=== PATIENT | female | born 1980 | race Caucasian/White ===

== ENCOUNTER 2019-09-21 16:24 | Emergency (ER) | payer MEDICAID, SELFPAY ==
[2019-09-21 17:18] VITALS: BP 135/92; PULSE 113; RESP 16; TEMP 36.6; O2SAT 100; BMI 29.7
--- NOTE | 2019-09-21 17:40 | W.ED.SKABFB ---
HPI - Skin/Abscess/Foreign Bdy General: Chief complaint: Skin/Abscess/Foreign Body Stated complaint: SPIDER BITE RIGHT CALF Time Seen by Provider: 09/21/19 17:34 History of Present Illness: HPI narrative: Patient is a 39-year-old female comes to the ED with an abscess on her right leg. She states she noticed it 5 days ago. She did feel a bite or sting all the small ulcer had formed. She did not see any bug or spider that caused it. She states that the swelling and pain has continued to get worse. She now says that hard for a walker move around on right leg. Denies any fever, chills, Shortness of breath, chest pain, vomiting, abdominal pain, hematuria, dysuria, bowel symptoms. Review of Systems General: Reports: 10 or more systems reviewed and unremarkable except in HPI and below PFSH ED PFSH: Statuses (acute, chronic, etc) shown below reflect problem list status as previously entered and may not be historically accurate Social History Smoking and tobacco status: current some day smoker Alcohol intake: never Female Reproductive History: Date of last menstrual period: 09/07/19 Physical Exam Narrative: EXAM NARRATIVE: Patient is a 39-year-old female that appears in pain as I entered the room. Const: COMMON NORMALS: oriented x3 HENMT: COMMON NORMALS: normocephalic HEAD & SCALP: normocephalic MOUTH: oral and palatal mucosa normal THROAT: posterior oropharynx normal and uvula midline Neck/C-Spine: COMMON NORMALS: supple GENERAL: Yes normal visual inspection Resp: COMMON NORMALS: normal respiratory effort, no retractions, no use of accessory muscles and clear to auscultation bilaterally AUSCULTATION: clear to auscultation bilaterally Cardio: COMMON NORMALS: regular rate, regular rhythm, S1 normal heart sound, S2 normal heart sound, no gallops, no clicks, no murmurs and peripheral pulses 2+ throughout RATE: regular rate RHYTHM: regular rhythm HEART SOUNDS: S1 normal and S2 normal PERIPHERAL PULSES: pulses 2+ throughout GI: COMMON NORMALS: normal to inspection, nondistended, normoactive bowel sounds, soft to palpation, non-tender and no masses PALPATION: Yes soft : COMMON NORMALS: Yes no CVA tenderness BLADDER/KIDNEY EXAM: Yes no CVA tenderness Back/Pelvis: COMMON NORMALS: no CVA tenderness Extremity: RIGHT LOWER EXTREMITY: Yes lower leg Right lower leg: Yes inspection (erythema, warmth and swelling with ulcer in center-yellow drainage), Yes palpation (very tender, non flunctuant, and indurated) and Yes neurovascular exam (intact) Neuro: COMMON NORMALS: oriented x3 and moves all extremities Course ED course: Patient's pain did improve with hydrocodone and she was able to walk without as much discomfort or pain while here in the ED after hydrocodone dose. Vital Signs: Vital signs: Vital Signs Temperature 98.8 F 09/21/19 20:40 Pulse Rate 101 H 09/21/19 20:40 Respiratory Rate 17 09/21/19 20:40 Blood Pressure 114/76 09/21/19 20:40 Pulse Oximetry 98 09/21/19 20:40 MDM - Skin/Abscess/Foreign Bdy MDM Narrative: Medical decision making narrative: Patient is a 39-year-old female comes to the ED with right lower extremity cellulitis. Ultrasound showed no abscess or fluid pocket to drain. Patient was then given a dose of Rocephin and also hydrocodone for pain while here in the ED. Patient was then discharged and told to follow with primary care doctor in 7 days for reevaluation. She was given a prescription for Bactrim and also a written prescription for hydrocodone 5/325 mg 10 tablets. Patient understood and agreed with plan. Lab Data: Attestation: I reviewed the patient's lab results. Labs: Lab Results 09/21/19 09/21/19 Range/Units 17:50 17:50 WBC 8.9 (4.0-10.0) 10^3/ uL RBC 4.56 (4.1-5.3) 10^6/u L Hgb 13.1 (11.5-15.3) g/dL Hct 38.9 (37.0-47.0) % MCV 85.3 (81-99) fL MCH 28.7 (28.0-34.0) pg MCHC 33.7 (30.0-36.0) g/dL RDW 11.5 L (12.1-15.1) % Plt Count 272 (130-400) 10^3/c mm MPV 10.1 (7.4-10.4) fL Neut % (Auto) 75.1 % Lymph % (Auto) 15.9 % [place] % (Auto) 8.3 % Eos % (Auto) 0.3 % Baso % (Auto) 0.2 % Neut # (Auto) 6.7 (1.8-7.7) 10^3/u L Lymph # (Auto) 1.4 (0.8-4.8) 10^3/u L [place] # (Auto) 0.7 (0.2-0.9) 10^3/u L Eos # (Auto) 0.0 (0.0-0.8) 10^3/u L Baso # (Auto) 0.0 (0.0-0.1) 10^3/u L Nucleated RBC % (a uto) 0 % Nucleated RBCs # 0.0 /100WBC Sodium 141 (136-145) mmol/L Potassium 3.8 (3.5-5.1) mmol/L Chloride 104 (98-107) mmol/L Carbon Dioxide 22 (22-29) mmol/L Anion Gap 18.8 (5-19) BUN 10 (6-20) mg/dL Creatinine 0.6 (0.5-0.9) mg/dL GFR Calculation 110.7 (90-130) mL/min Glucose 104 (65-115) mg/dL Calcium 9.8 (8.5-10.5) mg/dL Total Bilirubin 0.6 (0.15-1.2) mg/dL AST 13 (0-32) U/L ALT 13 (0-33) U/L Alkaline Phosphata se 67 (35-105) IU/L Total Protein 7.6 (6.6-8.7) g/dL Albumin 4.5 (3.5-5.2) g/dL Globulin 3.1 (1.3-4.6) g/dL Imaging Data^: US: Attestation: I personally reviewed and interpreted this imaging study as follows: Radiologist's impression: Prelim report-no abscess seen. Xray Ortho: Attestation: I personally reviewed and interpreted this imaging study as follows: My impression: Right Tib/fib-No acute fractures. pending final radiologist report Discharge Plan Discharge Patient Disposition: Home, Self-Care Clinical Impression: Cellulitis Qualifiers: Site of cellulitis: extremity Site of cellulitis of extremity: lower extremity Laterality: right Qualified Code(s): L03.115 - Cellulitis of right lower limb Condition: Stable Prescriptions: New Bactrim DS 800-160 mg tablet 1 tab PO DAILY 10 Days Qty: 10 RF: 0 No Action naproxen 500 mg tablet,delayed release (DR/EC) 500 mg PO BID RF: 0 Discharge Orders: Discharge Order (Routine); Ordered 09/21/19 Ordered By: Isaiah Mitchell Referrals: Christina Alonso FNP [Primary Care Provider] - Discharge Diet: Regular Discharge Activity: Resume usual activity Patient Instructions: Cellulitis (ED) Activity Restrictions/Additional Instructions: Called to set up an appointment with your PCP in the next 7 days for reevaluation. Take full course of antibiotics as prescribed. He used to prescribed hydrocodone as needed for breakout pain. You can also take naproxen or ibuprofen to help with pain as well. Drink plenty of fluids and stay hydrated. Return to ED for reevaluation if he started developing a fever or cellulitis worsens after 3-4 days of treatment on an antibiotic. Discharge Date/Time: 09/21/19 20:30 Coding Level of Care Code ED [employer] Hazmat Driver for Mary Ceron Exam Problem Focused
--- NOTE | 2019-09-21 18:11 | US_ITS ---
WS: [id number] ULTRASOUND SOFT TISSUES lateral lower extremity HISTORY: Swelling and pain in right leg COMPARISON: None available. TECHNIQUE: 2-D and color Doppler imaging is submitted. Ultrasound is directed over the lateral LEFT lower extremity in the area of the soft tissue ulceratio n. There is a large amount of edema. No focal collection or enhancement. US/US soft tissue/extremity [id number] IMPRESSION: Subcutaneous edema at the site of the ulceration in the RIGHT lower extremity. No abscess.
--- NOTE | 2019-09-21 18:11 | XRR_ITS ---
PROCEDURE INFORMATION: Exam: XR Right Tibia and Fibula Exam date and time: 09/21/2019 7:37 PM Age: 39 years old Clinical indication: Pain; Lower leg; Right; Additional info: Pain and swelling TECHNIQUE: Imaging protocol: XR Right tibia and fibula. Views: 2 views. COMPARISON: US soft tissue/extremity [id number] 09/21/2019 6:51 PM FINDINGS: Bones/joints: Osseous structures normal. No erosive changes. No periosteal response. No fracture. No soft tissue calcifications. Osseous structures about the knee normal. No joint effusion. Soft tissues unremarkable. Medial and lateral malleoli normal. ankle mortise is symmetrical. Hindfoot foot unremarkable. Tibiotalar joint and the subtalar joint normal. Soft tissues: See Bones/joints Finding. XR/XR tibia fibula RT 2V [id number] IMPRESSION: Normal leg.
[2019-09-21 18:17] LABS: Basophils % 0.2 %; Eosinophils % 0.3 %; Hematocrit 38.9 % (37.0-47.0); Hemoglobin 13.1 g/dL (11.5-15.3); Lymphocytes # 1.4 10^3/uL (0.8-4.8); Lymphocytes % 15.9 %; Mean Corpuscular HGB Conc 33.7 g/dL (30.0-36.0); Mean Corpuscular Hemoglobin 28.7 pg (28.0-34.0); Mean Corpuscular Volume 85.3 fL (81-99); Mean Platelet Volume 10.1 fL (7.4-10.4); Monocytes # 0.7 10^3/uL (0.2-0.9); Monocytes % 8.3 %; Neutrophils # 6.7 10^3/uL (1.8-7.7); Neutrophils % 75.1 %; Nucleated Red Blood Cells % 0 %; Platelet Count 272 10^3/cmm (130-400); Red Blood Count 4.56 10^6/uL (4.1-5.3); Red Cell Distribution Width 11.5 % (12.1-15.1); White Blood Count 8.9 10^3/uL (4.0-10.0)
[2019-09-21 18:21] VITALS: BP 92/78; PULSE 122; O2SAT 100
[2019-09-21] MEDS: HYDROcodone-acetaminophen 7.5-325 mg Tablet 1 TAB PO (18:21)
[2019-09-21 18:29] LABS: Alanine Aminotransferase 13 U/L (0-33); Albumin Level 4.5 g/dL (3.5-5.2); Alkaline Phosphatase 67 IU/L (35-105); Anion Gap 18.8 (5-19); Aspartate Amino Transferase 13 U/L (0-32); Blood Urea Nitrogen 10 mg/dL (6-20); Calcium 9.8 mg/dL (8.5-10.5); Carbon Dioxide 22 mmol/L (22-29); Chloride 104 mmol/L (98-107); Globulin 3.1 g/dL (1.3-4.6); Glomerular Filtration Rate 110.7 mL/min (90-130); Glucose 104 mg/dL (65-115); Potassium 3.8 mmol/L (3.5-5.1); Sodium 141 mmol/L (136-145); Total Bilirubin 0.6 mg/dL (0.15-1.2); Total Protein 7.6 g/dL (6.6-8.7)
[2019-09-21] MEDS: cefTRIAXone 1,000 mg SDV 1000 MG IM (19:47)
[2019-09-21] MEDS: lidocaine 1% INJ 20 mL 3.6 ML INJECTION (19:50)
[2019-09-21 20:40] VITALS: BP 114/76; PULSE 101; RESP 17; TEMP 37.1; O2SAT 98
== END 2019-09-21 20:30 | disposition home or self-care (01) ==
PROVIDERS: Emergency Provider Physician Assistant; Family Provider Nurse Practitioner; PCP Nurse Practitioner
DX: L03.115 Cellulitis of right lower limb (principal); F17.210 Nicotine dependence, cigarettes, uncomplicated
CPT/HCPCS: 36415; 73590; 76882; 80053; 85025; 87040; 96372; 99281; 99283; J0696; J2001

== ENCOUNTER 2019-10-04 13:29 | Outpatient (RCR) | payer MEDICAID, SELFPAY | END 2019-10-09 23:59 | disposition home or self-care (01) | LOC: WOUND 13:29 | PROVIDERS: Family Provider Nurse Practitioner; PCP Nurse Practitioner; Visit Provider Nurse Practitioner Family | DX: I96 Gangrene, not elsewhere classified (principal); L97.812 Non-pressure chronic ulcer of other part of right lower leg with fat layer exposed | CPT/HCPCS: G0463 ==

== ENCOUNTER 2019-10-25 13:20 | Outpatient (RCR) | payer MEDICAID, SELFPAY | END 2019-11-09 23:59 | disposition home or self-care (01) | LOC: WOUND 13:20 | PROVIDERS: Family Provider Nurse Practitioner; PCP Nurse Practitioner; Visit Provider Nurse Practitioner Family | DX: T63.331D Toxic effect of venom of brown recluse spider, accidental (unintentional), subsequent encounter (principal) | CPT/HCPCS: 11042; 99212; 99214 ==

== ENCOUNTER → 2019-11-01 10:25 | Outpatient (BNVA) | payer MEDICAID, SELFPAY | PROVIDERS: Family Provider Nurse Practitioner; PCP Nurse Practitioner; Visit Provider Counselor Professional | DX: F43.12 Post-traumatic stress disorder, chronic (principal) | CPT/HCPCS: 90834 ==

== ENCOUNTER → 2019-11-15 11:04 | Outpatient (BNVA) | payer MEDICAID, SELFPAY | PROVIDERS: Family Provider Nurse Practitioner; PCP Nurse Practitioner; Visit Provider Counselor Professional | DX: F43.12 Post-traumatic stress disorder, chronic (principal) | CPT/HCPCS: 90834 ==

== ENCOUNTER 2019-11-16 13:36 | Emergency (ER) | payer MEDICAID, SELFPAY ==
[2019-11-16 13:40] VITALS: BMI 31.4
[2019-11-16 13:47] VITALS: BP 116/74; PULSE 72; RESP 16; TEMP 37.1; O2SAT 98
--- NOTE | 2019-11-16 14:06 | W.ED.SKABFB ---
HPI - Skin/Abscess/Foreign Bdy General: Chief complaint: Skin/Abscess/Foreign Body Stated complaint: spider bite Time Seen by Provider: 11/16/19 13:43 Source: patient Mode of arrival: ambulatory Limitations: no limitations History of Present Illness: HPI narrative: Patient is a 39-year-old female who presents to ED today with complaints of a possible spider bite to her left lateral thigh that she noticed yesterday. Patient states she was bit by a brown recluse several months ago to her right lateral lower leg that required several wound care appointments to heal. Patient states she has seen several brown recluse spiders in her home. She states the area on her thigh currently is erythematous and burning in nature. She states she has noticed a small amount of clear drainage from the area. She has not been running fevers. She does not complain of nausea or vomiting. She has no other complaints at this time. MD complaint: insect bite/sting Tetanus up to date: yes Location: LLE Quality: burning Pain Consistency: constant Relieving factors: none Exacerbating factors: none Associated symptoms: Deny chills, fever(s), nausea or vomiting Treatments prior to arrival: none Review of Systems Const: Denies: fever, chills, body aches, change in appetite, change in weight, fatigue or malaise Eyes: Denies: change in vision, blurry vision or photophobia Card: Denies: chest pain, palpitations or lightheadedness Resp: Denies: shortness of breath GI: Denies: abdominal pain, nausea or vomiting Musc: Denies: neck pain or back pain Skin/Breast: Reports: new lesion Neuro: Denies: headache, numbness in extremities, weakness in extremities or changes in sensation [facility] ED PFSH: Medical History (Updated 11/16/19 @ 14:07 by JOY Stevens) Brown recluse spider bite Surgical History (Updated 09/28/19 @ 13:33 by MAGEN Schmidt) History of delivery (~2000) History of tubal ligation (~2009) Social History Smoking and tobacco status: current some day smoker cigarettes Alcohol intake: never History of recent travel: No Female Reproductive History: Date of last menstrual period: 11/03/19 Physical Exam Const: COMMON NORMALS: no apparent distress, average body habitus, oriented x3, no limitations, healthy appearing, alert and well nourished Extremity: COMMON NORMALS: full ROM, normal capillary refill, no joint enlargement, no clubbing, cyanosis or edema, no calf tenderness and no pedal edema GENERAL: Yes normal exam except as noted (see skin) OTHER: see skin assessment Neuro: COMMON NORMALS: oriented x3 SENSORIUM/ORIENTATION: Yes alert Skin: OTHER: Patient has a 2.5 inch area of annular erythema to her left upper lateral thigh with a central 1 cm area of developing probable necrosis although there are no hemorrhagic changes at this time. There is a scant amount of clear drainage from the center. Area overall is mildly indurated. There is no fluctuance or indication for I&D at this time. Course Vital Signs: Vital signs: Vital Signs Temperature 98.7 F 11/16/19 14:13 Pulse Rate 72 11/16/19 14:13 Respiratory Rate 16 11/16/19 14:13 Blood Pressure 116/74 11/16/19 14:13 Pulse Oximetry 98 11/16/19 13:47 MDM - Skin/Abscess/Foreign Bdy MDM Narrative: Medical decision making narrative: Will start pt on Bactrim and recommend follow up with PCP. She may require wound care yet again if area becomes necrotic. Return to ED precautions given. Discharge Plan Discharge Patient Disposition: Home, Self-Care Clinical Impression: Brown recluse spider bite Qualifiers: Encounter type: initial encounter Condition: Stable Prescriptions: New Bactrim DS 800-160 mg tablet 1 tab PO BID 7 Days Qty: 14 RF: 0 No Action ibuprofen 800 mg tablet 800 mg PO Q8H PRN (Reason: pain) Qty: 90 RF: 0 ondansetron HCl 4 mg tablet 4 mg PO DAILY RF: 0 montelukast 10 mg tablet 10 mg PO DAILY RF: 0 L-Lysine 500 mg Tablet 500 mg PO DAILY RF: 0 Chantix Continuing Month Box 1 mg tablet RF: 0 Discharge Orders: Discharge Order (Routine); Ordered 11/16/19 Ordered By: Key Cantu Referrals: Christina Alonso FNP [Primary Care Provider] - Discharge Diet: Usual diet Discharge Activity: Increase activity as tolerated Patient Instructions: Brown Recluse Spider Bite, Insect Bite or Sting (ED), Brown Recluse Spider Bite (ED) Discharge Date/Time: 11/16/19 14:14 Coding Level of Care Code ED Family Caseworker for Mary Ceron
[2019-11-16 14:13] VITALS: BP 116/74; PULSE 72; RESP 16; TEMP 37.1
== END 2019-11-16 14:14 | disposition home or self-care (01) ==
PROVIDERS: Emergency Provider Physician Assistant; Family Provider Nurse Practitioner; PCP Nurse Practitioner
DX: T63.331A Toxic effect of venom of brown recluse spider, accidental (unintentional), initial encounter (principal); L53.0 Toxic erythema; Y92.009 Unspecified place in unspecified non-institutional (private) residence as the place of occurrence of the external cause; F17.210 Nicotine dependence, cigarettes, uncomplicated
CPT/HCPCS: 12345; 99281; 99282

== ENCOUNTER → 2019-12-13 13:04 | Outpatient (BNVA) | payer MEDICAID, SELFPAY | PROVIDERS: Family Provider Nurse Practitioner; PCP Nurse Practitioner; Visit Provider Counselor Professional | DX: F43.12 Post-traumatic stress disorder, chronic (principal) | CPT/HCPCS: 90834 ==

== ENCOUNTER → 2019-12-27 13:34 | Outpatient (BNVA) | payer MEDICAID, SELFPAY | PROVIDERS: Family Provider Nurse Practitioner; PCP Nurse Practitioner; Visit Provider Counselor Professional | DX: F43.12 Post-traumatic stress disorder, chronic (principal) | CPT/HCPCS: 90834 ==

== ENCOUNTER → 2020-01-10 13:03 | Outpatient (BNVA) | payer MEDICAID, SELFPAY | PROVIDERS: Family Provider Nurse Practitioner; PCP Nurse Practitioner; Visit Provider Counselor Professional | DX: F43.12 Post-traumatic stress disorder, chronic (principal) | CPT/HCPCS: 90834 ==

== ENCOUNTER → 2020-01-24 13:10 | Outpatient (BNVA) | payer MEDICAID, SELFPAY | PROVIDERS: Family Provider Nurse Practitioner; PCP Nurse Practitioner; Visit Provider Counselor Professional | DX: F43.12 Post-traumatic stress disorder, chronic (principal) | CPT/HCPCS: 90834 ==

== ENCOUNTER → 2020-01-31 13:17 | Outpatient (BNVA) | payer MEDICAID, SELFPAY | PROVIDERS: Family Provider Nurse Practitioner; PCP Nurse Practitioner; Visit Provider Counselor Professional | DX: F43.12 Post-traumatic stress disorder, chronic (principal) | CPT/HCPCS: 90834 ==

== ENCOUNTER → 2020-02-07 13:07 | Outpatient (BNVA) | payer MEDICAID, SELFPAY | PROVIDERS: Family Provider Nurse Practitioner; PCP Nurse Practitioner; Visit Provider Counselor Professional | DX: F43.12 Post-traumatic stress disorder, chronic (principal) | CPT/HCPCS: 90834 ==

== ENCOUNTER → 2020-02-18 11:26 | Outpatient (BNVA) | payer MEDICAID, SELFPAY | PROVIDERS: Family Provider Nurse Practitioner; PCP Nurse Practitioner; Visit Provider Family Medicine | DX: R63.5 Abnormal weight gain (principal); M25.511 Pain in right shoulder; G89.29 Other chronic pain; J30.9 Allergic rhinitis, unspecified | CPT/HCPCS: 84443 ==

== ENCOUNTER → 2020-02-28 14:03 | Outpatient (BNVA) | payer MEDICAID, SELFPAY | PROVIDERS: Family Provider Nurse Practitioner; PCP Nurse Practitioner; Visit Provider Counselor Professional | DX: F43.12 Post-traumatic stress disorder, chronic (principal) | CPT/HCPCS: 90834 ==

== ENCOUNTER → 2020-03-14 14:05 | Outpatient (BNVA) | payer MEDICAID, SELFPAY | PROVIDERS: Family Provider Nurse Practitioner; PCP Nurse Practitioner; Visit Provider Counselor Professional | DX: F43.12 Post-traumatic stress disorder, chronic (principal) | CPT/HCPCS: 90834 ==

== ENCOUNTER → 2020-03-29 14:06 | Outpatient (BNVA) | payer MEDICAID, SELFPAY | PROVIDERS: Family Provider Nurse Practitioner; PCP Nurse Practitioner; Visit Provider Counselor Professional | DX: F43.12 Post-traumatic stress disorder, chronic (principal) | CPT/HCPCS: 90834 ==

== ENCOUNTER 2020-04-11 06:00 | Outpatient (RCR) | payer MEDICAID, SELFPAY | END 2020-05-10 23:59 | disposition home or self-care (01) | LOC: SPT 06:00 | PROVIDERS: PCP Nurse Practitioner; Referring Provider Family Medicine; Visit Provider Family Medicine | DX: G89.29 Other chronic pain (principal); M25.511 Pain in right shoulder; M54.2 Cervicalgia | CPT/HCPCS: 97110; 97161 ==

== ENCOUNTER → 2020-04-12 14:04 | Outpatient (BNVA) | payer MEDICAID, SELFPAY | PROVIDERS: Family Provider Nurse Practitioner; PCP Nurse Practitioner; Visit Provider Counselor Professional | DX: F43.12 Post-traumatic stress disorder, chronic (principal) | CPT/HCPCS: 90834 ==

== ENCOUNTER → 2020-04-20 14:02 | Outpatient (BNVA) | payer MEDICAID, SELFPAY | PROVIDERS: Family Provider Nurse Practitioner; PCP Nurse Practitioner; Visit Provider Family Medicine | DX: R60.1 Generalized edema (principal); F17.219 Nicotine dependence, cigarettes, with unspecified nicotine-induced disorders | CPT/HCPCS: 80048 ==

== ENCOUNTER 2020-04-24 11:53 | Outpatient (CLI) | payer MEDICAID, SELFPAY ==
[2020-04-24 12:40] LABS: Anion Gap 14.1 (5-19); Blood Urea Nitrogen 10 mg/dL (6-20); Calcium 8.8 mg/dL (8.5-10.5); Carbon Dioxide 24 mmol/L (22-29); Chloride 104 mmol/L (98-107); Glomerular Filtration Rate 136.6 mL/min (90-130); Glucose 101 mg/dL (65-115); Osmolality Calculated 282 mOsm/kg (285-295); Potassium 4.1 mmol/L (3.5-5.1); Sodium 138 mmol/L (136-145)
== END 2020-04-24 11:54 | disposition home or self-care (01) ==
LOC: LAB 11:56
PROVIDERS: PCP Family Medicine; Visit Provider Family Medicine
DX: R60.1 Generalized edema (principal)
CPT/HCPCS: 80048

== ENCOUNTER → 2020-05-04 14:39 | Outpatient (BNVA) | payer MEDICAID, SELFPAY | PROVIDERS: PCP Family Medicine; Visit Provider Counselor Professional | DX: F43.12 Post-traumatic stress disorder, chronic (principal) | CPT/HCPCS: 90834 ==

== ENCOUNTER 2020-05-11 06:00 | Outpatient (RCR) | payer MEDICAID, SELFPAY | END 2020-06-02 13:51 | disposition home or self-care (01) | LOC: SPT 06:00 | PROVIDERS: PCP Family Medicine; Referring Provider Family Medicine; Visit Provider Family Medicine | DX: G89.29 Other chronic pain (principal); M25.511 Pain in right shoulder; M54.2 Cervicalgia | CPT/HCPCS: 97110 ==

== ENCOUNTER → 2020-05-18 10:04 | Outpatient (BNVA) | payer MEDICAID, SELFPAY | PROVIDERS: PCP Family Medicine; Visit Provider Counselor Professional | DX: F43.12 Post-traumatic stress disorder, chronic (principal) | CPT/HCPCS: 90834 ==

== ENCOUNTER → 2020-05-26 10:05 | Outpatient (BNVA) | payer MEDICAID, SELFPAY | PROVIDERS: PCP Family Medicine; Visit Provider Counselor Professional | DX: F43.12 Post-traumatic stress disorder, chronic (principal) | CPT/HCPCS: 90834 ==

== ENCOUNTER → 2020-06-01 09:04 | Outpatient (BNVA) | payer MEDICAID, SELFPAY | PROVIDERS: PCP Family Medicine; Visit Provider Counselor Professional | DX: F43.12 Post-traumatic stress disorder, chronic (principal) | CPT/HCPCS: 90834 ==

== ENCOUNTER → 2020-06-16 16:03 | Outpatient (BNVA) | payer MEDICAID, SELFPAY | PROVIDERS: PCP Family Medicine; Visit Provider Counselor Professional | DX: F43.12 Post-traumatic stress disorder, chronic (principal) | CPT/HCPCS: 90834 ==

== ENCOUNTER → 2020-06-30 14:07 | Outpatient (BNVA) | payer MEDICAID, SELFPAY | PROVIDERS: PCP Family Medicine; Visit Provider Counselor Professional | DX: F43.12 Post-traumatic stress disorder, chronic (principal) | CPT/HCPCS: 90834 ==

== ENCOUNTER → 2020-07-14 14:07 | Outpatient (BNVA) | payer MEDICAID, SELFPAY | PROVIDERS: PCP Family Medicine; Visit Provider Counselor Professional | DX: F43.12 Post-traumatic stress disorder, chronic (principal) | CPT/HCPCS: 90834 ==

== ENCOUNTER → 2020-07-31 14:06 | Outpatient (BNVA) | payer MEDICAID, SELFPAY | PROVIDERS: PCP Family Medicine; Visit Provider Counselor Professional | DX: F43.12 Post-traumatic stress disorder, chronic (principal) | CPT/HCPCS: 90834 ==

== ENCOUNTER → 2020-08-15 15:14 | Outpatient (BNVA) | payer MEDICAID, SELFPAY | PROVIDERS: PCP Family Medicine; Visit Provider Counselor Professional | DX: F43.12 Post-traumatic stress disorder, chronic (principal) | CPT/HCPCS: 90834 ==

== ENCOUNTER → 2020-08-29 15:03 | Outpatient (BNVA) | payer MEDICAID, SELFPAY | PROVIDERS: PCP Family Medicine; Visit Provider Counselor Professional | DX: F43.12 Post-traumatic stress disorder, chronic (principal) | CPT/HCPCS: 90834 ==

== ENCOUNTER → 2020-09-11 10:55 | Outpatient (BNVA) | payer MEDICAID, SELFPAY | PROVIDERS: PCP Family Medicine; Visit Provider Obstetrics & Gynecology | DX: Z20.2 Contact with and (suspected) exposure to infections with a predominantly sexual mode of transmission (principal); N92.0 Excessive and frequent menstruation with regular cycle | CPT/HCPCS: 85025; 87491; 87591 ==

== ENCOUNTER → 2020-09-12 16:03 | Outpatient (BNVA) | payer MEDICAID, SELFPAY | PROVIDERS: PCP Family Medicine; Visit Provider Counselor Professional | DX: F43.12 Post-traumatic stress disorder, chronic (principal) | CPT/HCPCS: 90834 ==

== ENCOUNTER → 2020-09-15 14:28 | Outpatient (BNVA) | payer MEDICAID, SELFPAY | PROVIDERS: PCP Family Medicine; Visit Provider Obstetrics & Gynecology | DX: N92.0 Excessive and frequent menstruation with regular cycle (principal); N83.202 Unspecified ovarian cyst, left side | CPT/HCPCS: 76830 ==

== ENCOUNTER → 2020-09-28 14:53 | Outpatient (BNVA) | payer MEDICAID, SELFPAY | PROVIDERS: PCP Family Medicine; Visit Provider Counselor Professional | DX: F43.12 Post-traumatic stress disorder, chronic (principal) | CPT/HCPCS: 90834 ==

== ENCOUNTER 2020-10-18 08:20 | Outpatient (CLI) | payer MEDICAID, SELFPAY ==
--- NOTE | 2020-10-18 08:30 | MM_ITS ---
WS: [id number] Bilateral screening digital mammogram, 10/18/2020 Clinical Data: Z12.39 - Encounter for other screening for malignant neoplasm of breast Comparison: None. Findings: The breast parenchymal pattern shows extreme density No spiculated masses or clustered calcifications are seen. There are no secondary signs of carcinoma. MM/[id number] Impression: 1. Negative bilateral mammogram unchanged. 2. Recommend annual screening mammograms. BIRADS: 1-Negative FOLLOW UP: 1 Year Follow-up The CAD core checker was used.
== END 2020-10-18 08:21 | disposition home or self-care (01) ==
LOC: RADSHAW 08:23
PROVIDERS: PCP Family Medicine; Visit Provider Obstetrics & Gynecology
DX: Z12.31 Encounter for screening mammogram for malignant neoplasm of breast (principal)
CPT/HCPCS: 77067

== ENCOUNTER → 2020-11-10 07:45 | Outpatient (BNVA) | payer MEDICAID, SELFPAY | PROVIDERS: PCP Family Medicine; Visit Provider Counselor Professional | DX: F43.12 Post-traumatic stress disorder, chronic (principal) | CPT/HCPCS: 90791 ==

== ENCOUNTER → 2020-11-24 10:44 | Outpatient (BNVA) | payer MEDICAID, SELFPAY | PROVIDERS: PCP Family Medicine; Visit Provider Counselor Professional | DX: F43.12 Post-traumatic stress disorder, chronic (principal) | CPT/HCPCS: 90834 ==

== ENCOUNTER → 2020-12-08 09:50 | Outpatient (BNVA) | payer MEDICAID, SELFPAY | PROVIDERS: PCP Family Medicine; Visit Provider Counselor Professional | DX: F43.12 Post-traumatic stress disorder, chronic (principal) | CPT/HCPCS: 90834 ==

== ENCOUNTER 2020-12-18 14:19 | Outpatient (CLI) | payer MEDICAID, SELFPAY ==
--- NOTE | 2020-12-18 14:30 | XRR_ITS ---
PROCEDURE INFORMATION: Exam: XR Chest Exam date and time: 12/18/2020 2:38 PM Age: 40 years old Clinical indication: Cough TECHNIQUE: Imaging protocol: XR of the chest. Views: 2 views. COMPARISON: No relevant prior studies available. FINDINGS: Lungs: Unremarkable. No consolidation. Pleural spaces: Unremarkable. No pleural effusion. No pneumothorax. Heart/Mediastinum: Unremarkable. No cardiomegaly. Bones/joints: Unremarkable. XR/XR chest 2V* [id number] IMPRESSION: No acute findings.
== END 2020-12-18 14:20 | disposition home or self-care (01) ==
LOC: RAD 14:25
PROVIDERS: PCP Family Medicine; Visit Provider Otolaryngology
DX: R05 Cough (principal)
CPT/HCPCS: 71046

== ENCOUNTER → 2020-12-21 09:45 | Outpatient (BNVA) | payer MEDICAID, SELFPAY | PROVIDERS: PCP Family Medicine; Visit Provider Counselor Professional | DX: F43.12 Post-traumatic stress disorder, chronic (principal) | CPT/HCPCS: 90834 ==

== ENCOUNTER → 2021-01-11 10:43 | Outpatient (BNVA) | payer MEDICAID, SELFPAY | PROVIDERS: PCP Family Medicine; Visit Provider Counselor Professional | DX: F43.12 Post-traumatic stress disorder, chronic (principal) | CPT/HCPCS: 90834 ==

== ENCOUNTER → 2021-01-25 09:42 | Outpatient (BNVA) | payer MEDICAID, SELFPAY | PROVIDERS: PCP Family Medicine; Visit Provider Counselor Professional | DX: F43.12 Post-traumatic stress disorder, chronic (principal) | CPT/HCPCS: 90834 ==

== ENCOUNTER → 2021-02-05 09:53 | Outpatient (BNVA) | payer MEDICAID, SELFPAY | PROVIDERS: PCP Family Medicine; Visit Provider Family Medicine | DX: Z13.6 Encounter for screening for cardiovascular disorders (principal); R60.1 Generalized edema; M25.511 Pain in right shoulder; G89.29 Other chronic pain; B02.23 Postherpetic polyneuropathy | CPT/HCPCS: 80053; 80061; 85025 ==

== ENCOUNTER → 2021-02-07 09:43 | Outpatient (BNVA) | payer MEDICAID, SELFPAY | PROVIDERS: PCP Family Medicine; Visit Provider Counselor Professional | DX: F43.12 Post-traumatic stress disorder, chronic (principal) | CPT/HCPCS: 90834 ==

== ENCOUNTER → 2021-02-21 10:42 | Outpatient (BNVA) | payer MEDICAID, SELFPAY | PROVIDERS: PCP Family Medicine; Visit Provider Counselor Professional | DX: F43.12 Post-traumatic stress disorder, chronic (principal) | CPT/HCPCS: 90834 ==

== ENCOUNTER → 2021-03-14 09:48 | Outpatient (BNVA) | payer MEDICAID, SELFPAY | PROVIDERS: PCP Family Medicine; Visit Provider Counselor Professional | DX: F43.12 Post-traumatic stress disorder, chronic (principal) | CPT/HCPCS: 90834 ==

== ENCOUNTER → 2021-03-28 14:43 | Outpatient (BNVA) | payer MEDICAID, SELFPAY | PROVIDERS: PCP Family Medicine; Visit Provider Counselor Professional | DX: F43.12 Post-traumatic stress disorder, chronic (principal) | CPT/HCPCS: 90834 ==

== ENCOUNTER → 2021-04-11 15:45 | Outpatient (BNVA) | payer MEDICAID, SELFPAY | PROVIDERS: PCP Family Medicine; Visit Provider Counselor Professional | DX: F43.12 Post-traumatic stress disorder, chronic (principal) | CPT/HCPCS: 90834 ==

== ENCOUNTER → 2021-04-25 08:54 | Outpatient (BNVA) | payer MEDICAID, SELFPAY | PROVIDERS: PCP Family Medicine; Visit Provider Counselor Professional | DX: F43.12 Post-traumatic stress disorder, chronic (principal) | CPT/HCPCS: 90834 ==

== ENCOUNTER → 2021-05-16 14:44 | Outpatient (BNVA) | payer MEDICAID, SELFPAY | PROVIDERS: PCP Family Medicine; Visit Provider Counselor Professional | DX: F43.12 Post-traumatic stress disorder, chronic (principal) | CPT/HCPCS: 90834 ==

== ENCOUNTER → 2021-05-19 12:36 | Outpatient (BNVA) | payer MEDICAID, SELFPAY | PROVIDERS: PCP Family Medicine; Visit Provider Nurse Practitioner | DX: B95.8 Unspecified staphylococcus as the cause of diseases classified elsewhere (principal); L08.9 Local infection of the skin and subcutaneous tissue, unspecified | CPT/HCPCS: 87070; 87077; 87184 ==

== ENCOUNTER → 2021-06-06 14:51 | Outpatient (BNVA) | payer MEDICAID, SELFPAY | PROVIDERS: PCP Family Medicine; Visit Provider Counselor Professional | DX: F43.12 Post-traumatic stress disorder, chronic (principal) | CPT/HCPCS: 90834 ==

== ENCOUNTER → 2021-06-27 14:43 | Outpatient (BNVA) | payer MEDICAID, SELFPAY | PROVIDERS: PCP Family Medicine; Visit Provider Counselor Professional | DX: F43.12 Post-traumatic stress disorder, chronic (principal) | CPT/HCPCS: 90834 ==

== ENCOUNTER → 2021-07-18 14:45 | Outpatient (BNVA) | payer MEDICAID, SELFPAY | PROVIDERS: PCP Family Medicine; Visit Provider Counselor Professional | DX: F43.12 Post-traumatic stress disorder, chronic (principal) | CPT/HCPCS: 90834 ==

== ENCOUNTER → 2021-08-15 14:42 | Outpatient (BNVA) | payer MEDICAID, SELFPAY | PROVIDERS: PCP Family Medicine; Visit Provider Counselor Professional | DX: F43.12 Post-traumatic stress disorder, chronic (principal) | CPT/HCPCS: 90837; 90834 ==

== ENCOUNTER → 2021-09-10 15:51 | Outpatient (BNVA) | payer MEDICAID, SELFPAY | PROVIDERS: PCP Family Medicine; Visit Provider Counselor Professional | DX: F43.10 Post-traumatic stress disorder, unspecified (principal) | CPT/HCPCS: 90834 ==

== ENCOUNTER → 2021-10-12 15:49 | Outpatient (BNVA) | payer MEDICAID, SELFPAY | PROVIDERS: PCP Family Medicine; Visit Provider Counselor Professional | DX: F43.12 Post-traumatic stress disorder, chronic (principal) | CPT/HCPCS: 90837 ==

== ENCOUNTER 2021-10-23 11:15 | Day surgery (SDC) | payer MEDICAID, SELFPAY ==
[2021-10-22 12:58] VITALS: BMI 26.6
[2021-10-22 14:33] VITALS: BP 175/86; PULSE 51; RESP 18; O2SAT 99
[2021-10-22 14:48] VITALS: BP 195/97; PULSE 47; RESP 20; O2SAT 100
[2021-10-23] VITALS (15 sets, daily range): BP systolic 117–219; BP diastolic 61–131; PULSE 45–81; RESP 14–18; TEMP 36.3–36.5; O2SAT 98–100
[2021-10-23] MEDS: sodium chloride 0.9% 1,000 ML 30 ML IV (11:38)
[2021-10-23 11:43] LABS: OR HCG Qualitative Urine Negative (Negative)
--- NOTE | 2021-10-23 12:13 | ANES.PREANE2 ---
Pre-Anesthetic Assessment Height/Weight: Height 1.65 m Weight 72.575 kg Temp Pulse Resp BP Pulse Ox 97.7 F 58 L 18 117/76 98 10/23/21 11:28 10/23/21 11:28 10/23/21 11:28 10/23/21 11:28 10/23/21 11:28 Preop Diagnosis: Overproduction of nasal mucous Operation Date: 10/23/21 13:00 Proposed Procedures p Septoturbinoplasty(Bilateral) - Wilian Greawl MD Familial anesthetic complications: None Was Beta Viktoriya taken within 24 hours: N/A Was Clonidine taken within 24 hours: N/A Last intake: Intake Last Liquid Date 10/22/21 Last Liquid Time 22:45 Last Solid Date 10/22/21 Last Solid Time 22:45 Social No alcohol and No tobacco Exam alert, oriented x 3, clear to auscultation bilaterally and regular rate & rhythm Airway Submandibular: within normal limits Cervical ROM: within normal limits (Full ROM some pain) Mallampati: Class I Dentition: full Pulmonary None reported CV/HEM None reported None reported Hepatic None reported GI Gastroesophageal Reflux Disease Metabolic None reported Musc/skel Lower Back Pain and Osteoarthritis/DJD Chronic pain on baclofen last dose 10/22/21 Neuropsych Anxiety and Depression PTSD Anesthetic Plan ASA status: 2 Anesthesia: Anesthesia Evaluation and General Other: We discussed risk and benefits of general anesthesia including PONV, sore throat (sometimes severe), corneal abrasion, positioning and peripheral nerve injuries, life threatening allergic reaction, post operative ICU admission requiring prolonged intubation, stroke, heart attack, , and rare incidences of recall. Patient consents to proceed with general anesthesia. Risk of > 500 ml blood loss (7ml/kg in children): No Other Pertinent Information Hx of infectious disease: Herpes Medications/Allergies Home Medications Medication Instructions Recorded Confirmed Last Taken Type multivitamin 1 tab PO DAILY 09/11/20 10/23/21 10/22/21 History lysine 500 mg tablet (L-Lysine) 1,000 mg PO DAILY tab 09/15/20 10/23/21 10/23/21 08:00 History baclofen 10 mg tablet 10 mg PO BID PRN #60 tab 02/05/21 10/23/21 10/22/21 Rx naproxen 500 mg tablet (Naprosyn) 500 mg PO BID #60 tab 02/05/21 10/23/21 10/16/21 Rx hydrochlorothiazide 12.5 mg tablet 12.5 mg PO QAM #30 tab 08/14/21 10/23/21 10/23/21 08:00 Rx Allergies Allergy/AdvReac Type Severity Reaction Status Date / Time No Known Allergies Allergy Verified 10/23/21 11:25 Current Medications Generic Name Dose Route Start Last Admin Trade Name Freq PRN Reason Stop Dose Admin Sodium Chloride 1,000 mls @ 30 mls/hr 10/23/21 11:30 10/23/21 11:38 Sodium Chloride 0.9% IV 10/24/21 11:29 30 mls/hr .Q24H EBONY Administration PFSH Anesthesia Medical History Anxiety and depression Brown recluse spider bite Chronic pain Menorrhagia Psychiatric care PTSD (post-traumatic stress disorder) Uterine fibroid Surgical History History of delivery (02/06/01) History of tubal ligation (~2009) Laparoscopic. Performed at [facility] in [place], [place] Family History Grandfather Diabetes Hypertension Heart disease Grandmother Cancer Mother Ovarian cancer Diagnosed in age 20's. Breast cancer Diagnosed in the early 50s. Family/Other Breast cancer Maternal Aunt Social History Smoking and tobacco status: former smoker Quit status (tobacco): has quit using tobacco Year quit tobacco: 2019 Former quit date comment: Hx of 0.5 PPD x 25 Years Second hand smoke exposure: No Smoking risk assessment/counseling performed?: No Alcohol intake: never Counseling given: No Counseling given: No Household members: none Marital status: Single Current occupational status: student History of recent travel: No Current gender identity: Female Female Reproductive History Date of last menstrual period: 11/03/19 Data Anesthesia Cardiac Studies: No Data to Display
--- NOTE | 2021-10-23 12:55 | W.PM.OPSUD ---
Surgery/Procedure H&P Update DATE OF PROCEDURE: October 23, 2021 DATE H&P PERFORMED: 10/08/21 H&P UPDATE INFORMATION: I have reviewed H&P completed within last 30 days, I have examined patient prior to procedure and No changes to prior documentation PREOP DIAGNOSIS: Overproduction of nasal mucous; chronic nasal obstruction PRIMARY INDICATION FOR PROCEDURE: Chronic nasal obstruction Chronic non allergic rhinitis PLANNED PROCEDURE: Operation Date: 10/23/21 13:00 Proposed Procedures p Septoturbinoplasty(Bilateral) - Wilian Grewal MD
[2021-10-23] MEDS: lidocaine 4% PF 5 mL INJ 4 ML XX (13:20)
[2021-10-23] MEDS: oxymetazoline 0.05% Nasal Spray 15 mL 4 SPRAY NOSTRIL-B (13:20)
[2021-10-23] MEDS: mupirocin oint 22 gm 1 APPLIC NOSTRIL-B (13:45)
[2021-10-23] MEDS: mineral oil 30 mL UDC XX (14:00)
--- NOTE | 2021-10-23 14:13 | PM.OP ---
Operative Report Date of procedure: October 23, 2021 Pre-op diagnosis: Preop Diagnosis Overproduction of nasal mucous; chronic nasal obstruction Post-op diagnosis: same Post-op diagnosis: Same Post-op findings: [id number] nasal septal deviation Bilateral inferior turbinate hypertrophy Procedure done: Nasal septoplasty Bilateral inferior turbinoplasty Bilateral intranasal cryotherapy Implants: None Specimens removed/disposition: Nasal cartilage and bone Pathology: Nasal cartilage and bone Surgeon: Wilian Grewal Framework Developer: Michelle Bhagat Anesthesia: General Estimated blood loss (mL): 10 IV fluids (mL): 700 Complications: None Findings: [id number] nasal septal deviation Bilatgeral inferior turbinate hypertrophy Condition: stable Disposition: PACU Brief History: 41 yo wf with a long h/o chronic nasal obstruction and chronic rhinitis who desires surgical therapy. Procedure: The patient was identified in the preoperative holding area and was taken to the operating room where she was placed on the operating table in the supine position. Anesthesia was obtained with general endotracheal anesthesia. The patient's nose was inspected and then injected with local anesthesia. The patient had 2 neuro pledgets soaked in an Afrin/lidocaine mix placed intranasally bilaterally and 10 minutes were allowed to pass. The patient was then prepped and draped in the usual sterile fashion. The pledgets were removed and a right hemitransfixion incision was made with a 15 C blade. A subperichondrial plane was developed and was extended over the entire right nasal septum. The bony cartilaginous junction was divided and the cartilaginous septum swung into the midline. At this point the deviated portion of the bony nasal septum was removed with a pair of Eamon open biting forceps. With the septum now in the midline, the intranasal wound was closed with interrupted 5-0 chromic sutures. At this point 30 seconds of cryotherapy was performed at the posterior attachment of the middle turbinate to the lateral nasal wall with the Paola fix device. At this point, the mucosa was debrided from the lateral surface to the inferior turbinate anteriorly, and the bony portion of the inferior turbinate was removed anteriorly with the Acufex bone forceps after raising a mucosal flap on the inferior turbinate. Attention was then turned to the left nasal cavity where an identical cryotherapy procedure and turbinoplasty were performed. Once this was accomplished the inferior turbinates were outfractured and the septum was secured in the midline with a pair of Bactroban covered Juarez nasal splints that were secured in place with a transeptal 0-Prolene suture. At this point the procedure was terminated and control of the patient was returned to anesthesia where she underwent an uneventful reversal of anesthesia and extubation and was taken to the recovery room in stable condition. There were no operative or anesthetic complications.
[2021-10-23] MEDS: ondansetron 2 mg/ML SDV 2 mL 4 MG IVP (14:41)
[2021-10-23] MEDS: hyDRALAzine 20 mg/mL INJ 1 mL IVP (14:52)
[2021-10-23] MEDS: fentaNYL 50 mcg/mL INJ 2mL IVP (14:52)
[2021-10-23] MEDS: HYDROcodone-acetaminophen 5-325 mg Tablet 1 TAB PO (15:32)
--- NOTE | 2021-10-23 16:04 | ANE.PACU2 ---
Inpatient post-anesthesia follow up: Airway intact: Yes Vital signs: Temperature 97.7 F Pulse Rate 64 Respiratory Rate 18 Blood Pressure 117/71 Pulse Oximetry 99 Oxygen Delivery Me thod Room Air Oxygen Flow Rate Fraction of Inspir ed Oxygen Hydration adequate: Yes Nausea and vomiting: No Pain level: 4 Mental status: Baseline Additional Comments: Pain improved with fentanyl
== END 2021-10-23 15:55 | disposition home or self-care (01) ==
PROVIDERS: PCP Family Medicine; Visit Provider Specialist
PROC: (CPT 30520; principal; 2021-10-23 13:00)
DX: J34.89 Other specified disorders of nose and nasal sinuses (principal); K21.9 Gastro-esophageal reflux disease without esophagitis; M47.896 Other spondylosis, lumbar region; F41.9 Anxiety disorder, unspecified; F32.9 Major depressive disorder, single episode, unspecified; G89.29 Other chronic pain; Z87.891 Personal history of nicotine dependence
CPT/HCPCS: 30520; 30802; 12345; 81025; 84703; J0360; J1100; J1200; J2250; J2405; J2704; J2710; J3010; J3490; J7030

== ENCOUNTER → 2021-11-06 08:25 | Outpatient (BNVA) | payer MEDICAID, SELFPAY | PROVIDERS: PCP Family Medicine; Visit Provider Family Medicine | DX: R60.1 Generalized edema (principal) | CPT/HCPCS: 80053 ==

== ENCOUNTER → 2021-11-23 14:42 | Outpatient (BNVA) | payer MEDICAID, SELFPAY | PROVIDERS: PCP Family Medicine; Visit Provider Counselor Professional | DX: F43.12 Post-traumatic stress disorder, chronic (principal) | CPT/HCPCS: 90791 ==

== ENCOUNTER → 2021-12-07 15:48 | Outpatient (BNVA) | payer MEDICAID, SELFPAY | PROVIDERS: PCP Family Medicine; Visit Provider Counselor Professional | DX: F43.12 Post-traumatic stress disorder, chronic (principal) | CPT/HCPCS: 90837; 90834 ==

== ENCOUNTER → 2021-12-21 14:50 | Outpatient (BNVA) | payer MEDICAID, SELFPAY | PROVIDERS: PCP Family Medicine; Visit Provider Counselor Professional | DX: F43.12 Post-traumatic stress disorder, chronic (principal) | CPT/HCPCS: 90837; 90834 ==

== ENCOUNTER → 2022-01-04 15:47 | Outpatient (BNVA) | payer MEDICAID, SELFPAY | PROVIDERS: PCP Family Medicine; Visit Provider Counselor Professional | DX: F43.12 Post-traumatic stress disorder, chronic (principal) | CPT/HCPCS: 90834 ==

== ENCOUNTER → 2022-01-28 14:47 | Outpatient (BNVA) | payer MEDICAID, SELFPAY | PROVIDERS: PCP Family Medicine; Visit Provider Counselor Professional | DX: F43.12 Post-traumatic stress disorder, chronic (principal) | CPT/HCPCS: 90837; 90834 ==

== ENCOUNTER → 2022-05-07 09:46 | Outpatient (BNVA) | payer MEDICAID, SELFPAY | PROVIDERS: PCP Family Medicine; Visit Provider Family Medicine | DX: R60.9 Edema, unspecified (principal); Z13.6 Encounter for screening for cardiovascular disorders; R60.1 Generalized edema; M25.511 Pain in right shoulder; B00.89 Other herpesviral infection; G89.29 Other chronic pain | CPT/HCPCS: 80053; 80061; 85025 ==

== ENCOUNTER → 2022-09-30 16:00 | Outpatient (BNVA) | payer MEDICAID, SELFPAY | PROVIDERS: PCP Family Medicine; Visit Provider Nurse Practitioner Women's Health | DX: M25.511 Pain in right shoulder (principal); G89.29 Other chronic pain; R60.9 Edema, unspecified; Z12.4 Encounter for screening for malignant neoplasm of cervix | CPT/HCPCS: 87624 ==

== ENCOUNTER 2022-10-04 12:10 | Outpatient (CLI) | payer MEDICAID, SELFPAY ==
--- NOTE | 2022-10-04 12:59 | MM_ITS ---
WS: [id number] VIEWS: MLO and CC views both breasts. 3D digital tomosynthesis is also included in this exam. Comparison made with prior exam of 10/05/2018, 10/18/2020.. Findings: There was no sign of mass, architectural distortion or suspicious calcification in either breast. Sta ble appearing nodular densities in both breasts.Heterogeneously dense MM/[id number] Impression: BI-RADS: 2-Benign FOLLOW-UP: 1 Year Follow-up This mammogram was also analyzed by the Computer Aided Detection System R2 Imag e Lock Maintenance Supervisor.
== END 2022-10-04 12:11 | disposition home or self-care (01) ==
LOC: RAD 12:11
PROVIDERS: PCP Family Medicine; Visit Provider Nurse Practitioner Women's Health
DX: Z12.31 Encounter for screening mammogram for malignant neoplasm of breast (principal)
CPT/HCPCS: 77063; 77067

== ENCOUNTER → 2022-11-04 09:04 | Outpatient (BNVA) | payer MEDICAID, SELFPAY | PROVIDERS: PCP Family Medicine; Visit Provider Family Medicine | DX: R60.1 Generalized edema (principal); J30.9 Allergic rhinitis, unspecified | CPT/HCPCS: 80048 ==

== ENCOUNTER → 2022-11-12 09:07 | Outpatient (BNVA) | payer MEDICAID, SELFPAY | PROVIDERS: PCP Family Medicine | DX: J32.9 Chronic sinusitis, unspecified (principal); J06.9 Acute upper respiratory infection, unspecified | CPT/HCPCS: 87426 ==